=== PATIENT | male | born 1985 | race Caucasian/White ===

== ENCOUNTER 2020-10-25 19:41 | Inpatient (IN) | payer OTHER ==
[~2020-10-25] VITALS: Ht 175.3 cm; Wt 111.5 kg
[~2020-10-25 19:41] MED LIST: Amoxicillin500 MG PO; CHLO25 PO; CYCL10 PO; Cyclobenzaprine5 MG PO; HYDACE5 PO; IBUP400; NAPR500 PO; Naprosyn500 MG PO
[2020-10-25 20:18] LABS: BASOPHILS ABSOLUTE AUTO 0.07 K/mm3 (0.00-0.23); BASOPHILS PERCENT AUTO 0 % (0-2); EOSINOPHILS ABSOLUTE AUTO 0.03 K/mm3 (0.00-0.68); EOSINOPHILS PERCENT AUTO 0 % (0-6); Hematocrit 46.6 % (37.0-53.0); Hemoglobin 15.4 g/dL (13.5-17.5); IMMATURE GRAN ABSOLUTE AUTO 0.07 K/mm3 (0.00-0.10); IMMATURE GRAN PERCENT AUTO 0 % (0-1); LYMPHOCYTES ABSOLUTE AUTO 1.92 K/mm3 (0.84-5.20); LYMPHOCYTES PERCENT AUTO 10 % (21-46); MONOCYTES ABSOLUTE AUTO 1.84 K/mm3 (0.16-1.47); MONOCYTES PERCENT AUTO 10 % (4-13); Mean Corpuscular HGB 30.4 pg (26.0-34.0); Mean Corpuscular Volume 92 fL (80-100); Mean Platelet Volume 10.2 fL (9.1-12.4); NEUTROPHILS PERCENT AUTO 80 % (41-73); Platelet Count 258 K/mm3 (150-400); RDW Coefficient Variation 12.3 % (11.7-14.2); RDW Standard Deviation 41.8 fL (35.1-46.3); Red Blood Cell Count 5.07 M/mm3 (4.30-5.90); White Blood Cell Count 19.43 K/mm3 (4.00-11.30)
[2020-10-25 20:41] LABS: Alanine Aminotransfer (ALT/SGP 88 U/L (12-78); Albumin, Blood 4.4 g/dL (3.4-5.0); Albumin/Globulin Ratio 1.1 (0.8-1.8); Alk Phos 110 U/L (50-136); Anion Gap 8 mmol/L (6-16); Aspartate Aminotrans (AST/SGOT 27 U/L (12-37); Bilirubin, Total 0.7 mg/dL (0.1-1.0); Blood Urea Nitrogen 11 mg/dL (8-24); Bun/Creatinine Ratio 12.7 (12.0-20.0); CO2, Blood 24 mmol/L (21-32); Calcium, Blood 9.2 mg/dL (8.5-10.1); Chloride, Blood 108 mmol/L (98-108); Creatinine, Blood 0.86 mg/dL (0.60-1.20); Globulin, Blood 4.1 g/dL (2.2-4.0); Glomerular Filtration Rate >60 (60-); Glucose, Blood 83 mg/dL (70-99); Potassium, Blood 3.4 mmol/L (3.5-5.5); Sodium, Blood 140 mmol/L (136-145); Total Protein, Blood 8.5 g/dL (6.4-8.2)
[2020-10-26] MEDS ORDERED: Hair, Skin & N1 EACH PO (00:15)
[2020-10-26 00:33] LABS: Source, Urine Clean Catch
[2020-10-26 00:35] LABS: Bilirubin, Urine Neg (Neg); Blood, Urine 2+ (Neg); Glucose Qualitative, Urine Neg (Neg); Ketones, Urine 1+ (Neg); Leukocyte Esterase, Urine 1+ (Neg); Nitrite, Urine Pos (Neg); Protein, Urine Neg (Neg); Urobilinogen, Urine NORM (Normal)
[2020-10-26 00:37] LABS: Appearance, Urine Clear (Clear); Color, Urine Yellow (P-Yellow)
[2020-10-26 00:43] LABS: Bacteria Few /hpf; Red Blood Cells, Urine 0-2 /hpf (0-2); Squamous Epithelial Cells Not Seen /hpf (Few)
--- NOTE | 2020-10-26 00:45 | NUR ---
PT ARRIVED TO FLOOR FROM ER. PT A/O, HR TACHY 119, PT AFEBRILE. PT DENIES CP/PRESSURE/SOB, DOES C/O ABD PAIN W/DEEP BREATHS. PT C/O LOWER ABD PAIN X1 DAY W/NAUSEA. ABD DISTENDED, TENDER TO PALP. PT REP ABD PRESSURE/BLOATING, REP NO FLATUS. PT REP HAS BEEN UNABLE TO VOID, REP BLADDER PRESSURE/FULLNESS. PT VOIDED UPON ARRIVAL TO FLOOR, URINE ROSEY, PT REPORTS PAIN W/VOID. PT ORIENTED TO ROOM/CALL LIGHT, EDUCATED ON NPO STATUS. DR TALBOT UPDATED, VITALS REV. NEW ORDERS REC.
--- NOTE | 2020-10-26 06:33 | NUR ---
PT HR REMAINED TACHY 1'TEENS T/O NIGHT, PT DENIED CP/PRESSURE/SOB. PT AFEBRILE SINCE ARRIVING TO FLOOR. PT REPORTS LOWER ABD PAIN, REP WORSE THIS AM AFTER PASSING FLATUS. PT HAD NO N/V. PT CONT TO REPORT DYSURIA, URINE ROSEY. PT NPO, IVF AND ABX CONT PER ORDERS. PT UP INDEP IN ROOM, DENIED DIZZINESS WHEN UP.
[2020-10-26 06:52] LABS: Influenza A, PCR Negative (NEGATIVE); Influenza B, PCR Negative (NEGATIVE); Resp Syncytial Virus, PCR Negative (NEGATIVE); SARS-Cov-2 (COVID-19) PCR, MMC Negative (NEGATIVE)
--- NOTE | 2020-10-26 18:46 | NUR ---
SHIFT SUMMARY PAIN HAS BEEN MANAGED WITH IV PAIN MEDICATION. PT IS INDEPEDENT IN THE ROOM. VSS. WILL MONITOR UNTIL REPORT TO ONCOMING RN.
[2020-10-27 03:56] LABS: BASOPHILS ABSOLUTE AUTO 0.03 K/mm3 (0.00-0.23); BASOPHILS PERCENT AUTO 0 % (0-2); EOSINOPHILS ABSOLUTE AUTO 0.05 K/mm3 (0.00-0.68); EOSINOPHILS PERCENT AUTO 0 % (0-6); Hematocrit 38.2 % (37.0-53.0); Hemoglobin 12.4 g/dL (13.5-17.5); IMMATURE GRAN ABSOLUTE AUTO 0.05 K/mm3 (0.00-0.10); IMMATURE GRAN PERCENT AUTO 0 % (0-1); LYMPHOCYTES ABSOLUTE AUTO 1.76 K/mm3 (0.84-5.20); LYMPHOCYTES PERCENT AUTO 12 % (21-46); MONOCYTES ABSOLUTE AUTO 1.17 K/mm3 (0.16-1.47); MONOCYTES PERCENT AUTO 8 % (4-13); Mean Corpuscular HGB 30.1 pg (26.0-34.0); Mean Corpuscular HGB Conc 32.5 g/dL (31.5-36.5); Mean Corpuscular Volume 93 fL (80-100); Mean Platelet Volume 9.9 fL (9.1-12.4); NEUTROPHILS ABSOLUTE AUTO 11.44 K/mm3 (1.96-9.15); NEUTROPHILS PERCENT AUTO 79 % (41-73); Platelet Count 195 K/mm3 (150-400); RDW Coefficient Variation 12.1 % (11.7-14.2); RDW Standard Deviation 41.7 fL (35.1-46.3); Red Blood Cell Count 4.12 M/mm3 (4.30-5.90)
[2020-10-27 04:12] LABS: Anion Gap 9 mmol/L (6-16); Blood Urea Nitrogen 8 mg/dL (8-24); CO2, Blood 23 mmol/L (21-32); Calcium, Blood 8.2 mg/dL (8.5-10.1); Chloride, Blood 110 mmol/L (98-108); Creatinine, Blood 0.89 mg/dL (0.60-1.20); Glomerular Filtration Rate >60 (60-); Glucose, Blood 88 mg/dL (70-99); Potassium, Blood 3.5 mmol/L (3.5-5.5); Sodium, Blood 142 mmol/L (136-145)
--- NOTE | 2020-10-27 05:40 | NUR ---
PT HR REMAINS TACHY LOW 100'S, PT DENIES CP/PRESSURE/SOB; OTHER VSS. PT REP ABD PAIN MORE LOCALIZED TO MID-LOWER ABD. BT ACTIVE, PT REP +FLAUTS, REP INC PAIN W/PASSING GAS. PT CONT TO C/O PAIN W/VOID, REP CRAMPING FEELING FOR APPX 30 MIN AFTER VOIDING. PT MED FOR NAUSEA X1, NO EMESIS. PT UP INDEP IN ROOM, AMB ENC PT DUSTIN. IVF AND ABX CONT PER ORDERS.
[2020-10-28 05:20] LABS: BASOPHILS ABSOLUTE AUTO 0.03 K/mm3 (0.00-0.23); BASOPHILS PERCENT AUTO 0 % (0-2); EOSINOPHILS ABSOLUTE AUTO 0.23 K/mm3 (0.00-0.68); EOSINOPHILS PERCENT AUTO 2 % (0-6); Hematocrit 36.9 % (37.0-53.0); Hemoglobin 12.3 g/dL (13.5-17.5); IMMATURE GRAN ABSOLUTE AUTO 0.05 K/mm3 (0.00-0.10); IMMATURE GRAN PERCENT AUTO 1 % (0-1); LYMPHOCYTES ABSOLUTE AUTO 2.19 K/mm3 (0.84-5.20); LYMPHOCYTES PERCENT AUTO 22 % (21-46); MONOCYTES ABSOLUTE AUTO 0.85 K/mm3 (0.16-1.47); MONOCYTES PERCENT AUTO 9 % (4-13); Mean Corpuscular HGB 30.8 pg (26.0-34.0); Mean Corpuscular HGB Conc 33.3 g/dL (31.5-36.5); Mean Corpuscular Volume 93 fL (80-100); Mean Platelet Volume 10.1 fL (9.1-12.4); NEUTROPHILS ABSOLUTE AUTO 6.66 K/mm3 (1.96-9.15); NEUTROPHILS PERCENT AUTO 67 % (41-73); Platelet Count 215 K/mm3 (150-400); RDW Coefficient Variation 12.1 % (11.7-14.2); RDW Standard Deviation 41.4 fL (35.1-46.3); Red Blood Cell Count 3.99 M/mm3 (4.30-5.90); White Blood Cell Count 10.01 K/mm3 (4.00-11.30)
--- NOTE | 2020-10-28 07:32 | NUR ---
PT VSS T/O NIGHT. T-MAX 100.3, IMPROVED AFTER TORADOL GIVEN. PT DUSTIN CL PO, NO N/V, PT IS PASSING FLATUS, NO BM YET. ABD MOD DISTENDED, BT HYPER ACTIVE. PT CONT TO REP PAIN IN SUPERPBIC AREA, REP INC PAIN AFTER VOIDING URINE. URINE CLEAR YELLOW. PAIN MGD W/TORADOL AND 8MG MORPHINE. PT AMB INDEP IN HALLS, DUSTIN WELL. IVF AND ABX CONT PER ORDERS.
[2020-10-28] MEDS ORDERED: AMOCLA875 PO (15:12)
[2020-10-28] MEDS ORDERED: HYDR1TAB94 PO (15:13)
--- NOTE | 2020-10-28 15:31 | NUR ---
DISCHARGE PT DISCHARGED HOME FROM UNIT AT APROX 1520. PT GIVEN WRITTEN AND VERBAL DISCHARGE INSTRUCTIONS AND VERBALIZED UNDERSTANDING OF THESE INSTRUCTIONS. IV REMOVED. WRITTEN RX'S GIVEN TO PT FOR ABX AND PAIN MEDICATION, COPIES IN CHART. DECLINED WHEELCHAIR TO CAR.
[2021-01-29] MEDS ORDERED: NAPROXEN250 M1 PO (14:57)
[2021-01-29] MEDS ORDERED: MULTIPLE VITAM1 EACH PO (14:57)
[2021-03-05] MEDS ORDERED: MULVITA PO (14:03)
[2021-03-05] MEDS ORDERED: NAPR220 PO (14:05)
== END 2020-10-28 15:28 | disposition home or self-care (01) | DRG 872 ==
LOC: ER 19:41 → SURS 19:42
PROVIDERS: Emergency Medicine; ADMIT Surgery
DX: A41.9 Sepsis, unspecified organism (principal); K57.20 Diverticulitis of large intestine with perforation and abscess without bleeding; Z20.822 Contact with and (suspected) exposure to COVID-19; I10 Essential (primary) hypertension; Z79.899 Other long term (current) drug therapy; Z79.1 Long term (current) use of non-steroidal anti-inflammatories (NSAID); Z87.891 Personal history of nicotine dependence
CPT/HCPCS: 0241U; 36415; 51798; 74176; 80048; 80053; 81001; 83605; 83690; 85025; 87040; 87086; 96361; 96365; 96366; 96375; 96376; 99285-25; A9270; G0378; J0696; J1170; J1650; J1885; J2270; J2405; J2543; J3010; J7030; J7120

== ENCOUNTER 2020-12-07 13:20 | Inpatient (IN) | payer OTHER ==
[~2020-12-07] VITALS: Ht 175.3 cm; Wt 108.9 kg
[~2020-12-07 13:20] MED LIST changes: +AMOCLA875 PO; +HYDR1TAB94 PO; +Hair, Skin & N1 EACH PO
[2020-12-07 13:57] LABS: BASOPHILS ABSOLUTE AUTO 0.04 K/mm3 (0.00-0.23); BASOPHILS PERCENT AUTO 0 % (0-2); EOSINOPHILS ABSOLUTE AUTO 0.04 K/mm3 (0.00-0.68); EOSINOPHILS PERCENT AUTO 0 % (0-6); Hematocrit 47.2 % (37.0-53.0); Hemoglobin 16.4 g/dL (13.5-17.5); IMMATURE GRAN ABSOLUTE AUTO 0.08 K/mm3 (0.00-0.10); IMMATURE GRAN PERCENT AUTO 0 % (0-1); LYMPHOCYTES ABSOLUTE AUTO 1.74 K/mm3 (0.84-5.20); LYMPHOCYTES PERCENT AUTO 9 % (21-46); MONOCYTES ABSOLUTE AUTO 0.93 K/mm3 (0.16-1.47); MONOCYTES PERCENT AUTO 5 % (4-13); Mean Corpuscular HGB 30.6 pg (26.0-34.0); Mean Corpuscular HGB Conc 34.7 g/dL (31.5-36.5); Mean Corpuscular Volume 88 fL (80-100); NEUTROPHILS ABSOLUTE AUTO 16.95 K/mm3 (1.96-9.15); NEUTROPHILS PERCENT AUTO 86 % (41-73); Platelet Count 312 K/mm3 (150-400); RDW Coefficient Variation 12.5 % (11.7-14.2); RDW Standard Deviation 40.2 fL (35.1-46.3); Red Blood Cell Count 5.36 M/mm3 (4.30-5.90); White Blood Cell Count 19.78 K/mm3 (4.00-11.30)
[2020-12-07 14:18] LABS: Alanine Aminotransfer (ALT/SGP 81 U/L (12-78); Albumin, Blood 4.4 g/dL (3.4-5.0); Albumin/Globulin Ratio 1.1 (0.8-1.8); Alk Phos 116 U/L (50-136); Anion Gap 11 mmol/L (6-16); Aspartate Aminotrans (AST/SGOT 24 U/L (12-37); Bilirubin, Total 0.6 mg/dL (0.1-1.0); Blood Urea Nitrogen 10 mg/dL (8-24); Bun/Creatinine Ratio 12.8 (12.0-20.0); CO2, Blood 22 mmol/L (21-32); Calcium, Blood 9.2 mg/dL (8.5-10.1); Chloride, Blood 107 mmol/L (98-108); Creatinine, Blood 0.78 mg/dL (0.60-1.20); Glomerular Filtration Rate >60 (60-); Glucose, Blood 92 mg/dL (70-99); Potassium, Blood 3.8 mmol/L (3.5-5.5); Sodium, Blood 140 mmol/L (136-145); Total Protein, Blood 8.4 g/dL (6.4-8.2)
[2020-12-07 16:35] LABS: Source, Urine Catheter
[2020-12-07 16:44] LABS: Appearance, Urine Clear (Clear); Bilirubin, Urine Neg (Neg); Blood, Urine 3+ (Neg); Color, Urine Yellow (P-Yellow); Glucose Qualitative, Urine Neg (Neg); Ketones, Urine Neg (Neg); Leukocyte Esterase, Urine Neg (Neg); Nitrite, Urine Neg (Neg); Protein, Urine Neg (Neg); Specific Gravity, Urine 1.005 (1.003-1.022); Urobilinogen, Urine NORM (Normal)
[2020-12-07 16:57] LABS: Bacteria Not Seen /hpf; Squamous Epithelial Cells Not Seen /hpf (Few); White Blood Cells, Urine Not Seen /hpf (0-5)
[2020-12-07 17:15] LABS: Influenza A, PCR NEGATIVE (NEGATIVE); Influenza B, PCR NEGATIVE (NEGATIVE); Resp Syncytial Virus, PCR NEGATIVE (NEGATIVE); SARS-Cov-2 (COVID-19) PCR, MMC NEGATIVE (NEGATIVE)
--- NOTE | 2020-12-08 04:08 | NUR ---
SHIFT SUMMARY S/P SIGMOID DIVERTICULITIS PERF, A/O X4, VSS W/ INTERMITTENT TACHYCARDIA, NPO SINCE ADMISSION, INDEPENDENT IN ROOM, VOIDING WELL, PAIN WELL CONTROLLED PER EMAR. CALLLIGHT IN REACH, WILL CONTINUE TO MONITOR AND REPORT TO ONCOMING DAY RN.
[2020-12-08 04:49] LABS: BASOPHILS ABSOLUTE AUTO 0.04 K/mm3 (0.00-0.23); BASOPHILS PERCENT AUTO 0 % (0-2); EOSINOPHILS ABSOLUTE AUTO 0.07 K/mm3 (0.00-0.68); EOSINOPHILS PERCENT AUTO 1 % (0-6); Hematocrit 41.6 % (37.0-53.0); Hemoglobin 14.2 g/dL (13.5-17.5); IMMATURE GRAN ABSOLUTE AUTO 0.04 K/mm3 (0.00-0.10); IMMATURE GRAN PERCENT AUTO 0 % (0-1); LYMPHOCYTES ABSOLUTE AUTO 2.03 K/mm3 (0.84-5.20); LYMPHOCYTES PERCENT AUTO 16 % (21-46); MONOCYTES PERCENT AUTO 8 % (4-13); Mean Corpuscular HGB 30.8 pg (26.0-34.0); Mean Corpuscular HGB Conc 34.1 g/dL (31.5-36.5); Mean Corpuscular Volume 90 fL (80-100); Mean Platelet Volume 9.9 fL (9.1-12.4); NEUTROPHILS ABSOLUTE AUTO 9.37 K/mm3 (1.96-9.15); NEUTROPHILS PERCENT AUTO 75 % (41-73); Platelet Count 251 K/mm3 (150-400); RDW Coefficient Variation 12.7 % (11.7-14.2); RDW Standard Deviation 41.5 fL (35.1-46.3); Red Blood Cell Count 4.61 M/mm3 (4.30-5.90); White Blood Cell Count 12.55 K/mm3 (4.00-11.30)
[2020-12-08 05:06] LABS: Alanine Aminotransfer (ALT/SGP 54 U/L (12-78); Albumin, Blood 3.3 g/dL (3.4-5.0); Albumin/Globulin Ratio 0.9 (0.8-1.8); Alk Phos 90 U/L (50-136); Anion Gap 7 mmol/L (6-16); Aspartate Aminotrans (AST/SGOT 10 U/L (12-37); Bilirubin, Total 1.3 mg/dL (0.1-1.0); Blood Urea Nitrogen 9 mg/dL (8-24); Bun/Creatinine Ratio 8.9 (12.0-20.0); CO2, Blood 25 mmol/L (21-32); Calcium, Blood 8.3 mg/dL (8.5-10.1); Chloride, Blood 109 mmol/L (98-108); Creatinine, Blood 1.01 mg/dL (0.60-1.20); Globulin, Blood 3.6 g/dL (2.2-4.0); Glomerular Filtration Rate >60 (60-); Glucose, Blood 96 mg/dL (70-99); Potassium, Blood 3.5 mmol/L (3.5-5.5); Sodium, Blood 141 mmol/L (136-145); Total Protein, Blood 6.9 g/dL (6.4-8.2)
--- NOTE | 2020-12-08 17:13 | NUR ---
SUMMARY PT W/ ABD PAIN, CRAMPING AND NAUSEA THIS AM, REPORTS PAIN IS TOLERABLE WITH DILAUDID AND TORADOL, ZOFRAN GIVEN FOR NAUSEA, AMBULATED DOWN THE HALLS, STARTED CLEAR LIQUIDS TODAY, REPORTS NAUSEA AND ABD PAIN SLIGHTLY BETTER AFTER TAKING CLEAR LIQUIDS REPORTS TOLERATED WELL, STILL TACHY UP TO 121, DR. BLACKMAN AWARE, CURRENTLY 112BPM, HASN NOT NEEDED PRN HYDRALAZINE TODAY, DENIES PASSING FLATUS, DR. CARLSON AWARE OF CONSULT STATES DR. TALBOT WILL SEE PT TOMORROW.
[2020-12-09 04:32] LABS: Hematocrit 39.9 % (37.0-53.0); Hemoglobin 13.4 g/dL (13.5-17.5); Mean Corpuscular HGB 30.4 pg (26.0-34.0); Mean Corpuscular HGB Conc 33.6 g/dL (31.5-36.5); Mean Corpuscular Volume 91 fL (80-100); Mean Platelet Volume 9.7 fL (9.1-12.4); Platelet Count 264 K/mm3 (150-400); RDW Coefficient Variation 12.4 % (11.7-14.2); Red Blood Cell Count 4.41 M/mm3 (4.30-5.90); White Blood Cell Count 10.83 K/mm3 (4.00-11.30)
[2020-12-09 05:01] LABS: Alanine Aminotransfer (ALT/SGP 44 U/L (12-78); Albumin, Blood 3.1 g/dL (3.4-5.0); Albumin/Globulin Ratio 0.8 (0.8-1.8); Alk Phos 90 U/L (50-136); Anion Gap 6 mmol/L (6-16); Aspartate Aminotrans (AST/SGOT 12 U/L (12-37); Bilirubin, Total 0.8 mg/dL (0.1-1.0); Blood Urea Nitrogen 8 mg/dL (8-24); Bun/Creatinine Ratio 8.2 (12.0-20.0); CO2, Blood 26 mmol/L (21-32); Calcium, Blood 8.8 mg/dL (8.5-10.1); Chloride, Blood 108 mmol/L (98-108); Creatinine, Blood 0.97 mg/dL (0.60-1.20); Globulin, Blood 3.8 g/dL (2.2-4.0); Glomerular Filtration Rate >60 (60-); Glucose, Blood 88 mg/dL (70-99); Magnesium, Blood 2.3 mg/dL (1.6-2.4); Phosphorus, Blood 3.2 mg/dL (2.5-4.9); Potassium, Blood 3.8 mmol/L (3.5-5.5); Sodium, Blood 140 mmol/L (136-145); Total Protein, Blood 6.9 g/dL (6.4-8.2)
--- NOTE | 2020-12-09 07:42 | NUR ---
PT VSS T/O NIGHT, HR SINUS TACH 90-1'TEENS, PT DENIED CP/PRESSURE. PT DUSTIN CL PO, REP MILD NAUSEA THIS AM, ZOFRAN GIVEN X1 W/REP RELIEF. PT REP PASSING SMALL AMT FLATUS. PT REP PAIN BETTER MGD W/2MG IV DILAUDID. IVF CONT PER ORDERS.
--- NOTE | 2020-12-09 09:33 | NUR ---
ISTRATE HERE TO SEE PT. DISCUSSED PT'S STATUS, MEDS GIVEN.
--- NOTE | 2020-12-09 11:28 | NUR ---
PT REQ TO HAVE SHOWER. DISCUSSED TAKING OFF TELE FOR SHOWER WITH . REPORTS MAY D/C TELE. PT HAS HAD NO CP/SOB. NO EVENTS PER TELE. WILL D/C TELE.
--- NOTE | 2020-12-09 16:52 | NUR ---
SHIFT SUMMARY PT BEEN MED PRN FOR NAUSEA EARLIER TODAY. DENIES NAUSEA SO FAR THIS AFTERNOON. PT TOLERATED DIET. PT TOOK SHOWER TODAY. DR BEEN TO SEE PT. PT WALKING IN ROOM AND IN HALLWAY TODAY. PT BEEN ASSISTED WITH ADL'S PRN.
--- NOTE | 2020-12-09 19:11 | NUR ---
BEDSIDE REPORT RECENTLY COMPLETED WITH HS RN.
--- NOTE | 2020-12-10 03:50 | NUR ---
PANEL CUTTER SUMMARY A/OX4, IND IN ROOM. C/O LOWER ABD PAIN, MEDICATED PER EMAR X2. IV ZOSYN GIVEN. NO ACUTE CHANGES AT THIS TIME. BED IN LOWEST POSITION WITH CALL LIGHT IN REACH. WILL CONTINUE TO MONITOR AND REPORT TO ONCOMING RN.
[2020-12-10 04:29] LABS: BASOPHILS ABSOLUTE AUTO 0.03 K/mm3 (0.00-0.23); BASOPHILS PERCENT AUTO 0 % (0-2); EOSINOPHILS ABSOLUTE AUTO 0.38 K/mm3 (0.00-0.68); EOSINOPHILS PERCENT AUTO 5 % (0-6); Hematocrit 35.2 % (37.0-53.0); Hemoglobin 11.9 g/dL (13.5-17.5); IMMATURE GRAN ABSOLUTE AUTO 0.03 K/mm3 (0.00-0.10); IMMATURE GRAN PERCENT AUTO 0 % (0-1); LYMPHOCYTES ABSOLUTE AUTO 2.07 K/mm3 (0.84-5.20); LYMPHOCYTES PERCENT AUTO 29 % (21-46); MONOCYTES PERCENT AUTO 10 % (4-13); Mean Corpuscular HGB 30.7 pg (26.0-34.0); Mean Corpuscular HGB Conc 33.8 g/dL (31.5-36.5); Mean Corpuscular Volume 91 fL (80-100); Mean Platelet Volume 9.8 fL (9.1-12.4); NEUTROPHILS ABSOLUTE AUTO 3.98 K/mm3 (1.96-9.15); NEUTROPHILS PERCENT AUTO 55 % (41-73); Platelet Count 262 K/mm3 (150-400); RDW Coefficient Variation 12.4 % (11.7-14.2); RDW Standard Deviation 40.9 fL (35.1-46.3); Red Blood Cell Count 3.88 M/mm3 (4.30-5.90); White Blood Cell Count 7.19 K/mm3 (4.00-11.30)
[2020-12-10 04:47] LABS: Alanine Aminotransfer (ALT/SGP 36 U/L (12-78); Albumin, Blood 2.9 g/dL (3.4-5.0); Albumin/Globulin Ratio 0.9 (0.8-1.8); Alk Phos 84 U/L (50-136); Anion Gap 6 mmol/L (6-16); Aspartate Aminotrans (AST/SGOT 10 U/L (12-37); Bilirubin, Total 0.4 mg/dL (0.1-1.0); Blood Urea Nitrogen 7 mg/dL (8-24); Bun/Creatinine Ratio 7.3 (12.0-20.0); CO2, Blood 26 mmol/L (21-32); Calcium, Blood 8.2 mg/dL (8.5-10.1); Chloride, Blood 109 mmol/L (98-108); Creatinine, Blood 0.97 mg/dL (0.60-1.20); Globulin, Blood 3.4 g/dL (2.2-4.0); Glomerular Filtration Rate >60 (60-); Glucose, Blood 90 mg/dL (70-99); Magnesium, Blood 2.3 mg/dL (1.6-2.4); Phosphorus, Blood 3.6 mg/dL (2.5-4.9); Potassium, Blood 3.6 mmol/L (3.5-5.5); Sodium, Blood 141 mmol/L (136-145); Total Protein, Blood 6.3 g/dL (6.4-8.2)
--- NOTE | 2020-12-10 14:36 | NUR ---
DR TALBOT RECENTLY TO SEE PT, REPORTED PT MAY D/C HOME TODAY. DISCUSSED WITH DR BLACKMAN. PAIN PILLS ORDERED. PT REPORTS WILL FIND RIDE HOME.
[2020-12-10] MEDS ORDERED: ACET325 PO (15:16)
[2020-12-10] MEDS ORDERED: HYDR10 PO (15:18)
[2020-12-10] MEDS ORDERED: ONDA4ODT PO (15:18)
[2020-12-10] MEDS ORDERED: AMOCLA500 PO (15:19)
[2020-12-10] MEDS ORDERED: Percocet 5-3251 EACH PO (15:20)
[2020-12-10] MEDS ORDERED: METR500 PO (15:21)
[2020-12-10] MEDS ORDERED: CIPR500 PO (15:22)
[2020-12-10] MEDS ORDERED: VISBIOME 112.51 EACH PO (15:49)
--- NOTE | 2020-12-10 16:06 | NUR ---
DISCHARGE: PT REPORTS TOLERATING DIET AND LIQUIDS. REPORTS PAIN CONTROLLED ON PO PAIN MEDICATION. PT REPORTS UNDERSTANDING OF DISCHARGE INSTRUCTIONS. PT TO BE SENT WITH BELONGINGS. PT HAS PAPERWORK INCLUDING SCRIPTS. [employer] CALLED TO [facility] PER PT REQ. PT REPORTS NOT WANTING TYLENOL OR HYDRALAZINE CALLED IN. PT REFUSES HYDRALAZINE AND REPORTS HAVING TYLENOL AT HOME. PT WAITING FOR RIDE HOME.
--- NOTE | 2020-12-10 16:25 | NUR ---
PT OUT BY W/C WITH BELONGINGS AND PAPERWORK.
[2021-01-29] MEDS ORDERED: NAPROXEN250 M1 PO (14:57)
[2021-01-29] MEDS ORDERED: MULTIPLE VITAM1 EACH PO (14:57)
[2021-03-05] MEDS ORDERED: MULVITA PO (14:03)
[2021-03-05] MEDS ORDERED: NAPR220 PO (14:05)
== END 2020-12-10 16:30 | disposition home or self-care (01) | DRG 872 ==
LOC: ER 13:20 → SURS 17:24 → ERHOLD 17:24 → SURS 18:56
PROVIDERS: Emergency Medicine; Family Medicine; Physician Assistant; ADMIT Internal Medicine
DX: A41.9 Sepsis, unspecified organism (principal); K57.20 Diverticulitis of large intestine with perforation and abscess without bleeding; I10 Essential (primary) hypertension; Z20.822 Contact with and (suspected) exposure to COVID-19; Z87.891 Personal history of nicotine dependence
CPT/HCPCS: 0241U; 36415; 74177; 80053; 81001; 83605; 83735; 84100; 85025; 85027; 87040; 87086; 93005; 93010; 96361; 96365-59; 96375; 99285-25; A9270; J1170; J1650; J1885; J2405; J2543; J3010; J7030; J7120; Q9967

== ENCOUNTER 2021-02-04 11:36 | Day surgery (SDC) | payer OTHER ==
[~2021-02-04] VITALS: Ht 175.3 cm; Wt 108.2 kg
[~2021-02-04 11:36] MED LIST changes: +ACET325 PO; +AMOCLA500 PO; +CIPR500 PO; +HYDR10 PO; +METR500 PO; +MULTIPLE VITAM1 EACH PO; +NAPROXEN250 M1 PO; +ONDA4ODT PO; +Percocet 5-3251 EACH PO; +VISBIOME 112.51 EACH PO
--- NOTE | 2021-02-04 12:25 | NUR ---
02/04/21 1225 Ashanti Holman CALL LIGHT WITHIN REACH
== END 2021-02-04 13:51 | disposition home or self-care (01) ==
LOC: ORSCSDS 11:36
PROVIDERS: Surgery
PROC: 0DJD8ZZ Inspection of Lower Intestinal Tract, Via Natural or Artificial Opening Endoscopic (ICD-10-PCS; principal; 2021-02-04 13:00)
DX: K57.30 Diverticulosis of large intestine without perforation or abscess without bleeding (principal); Z87.19 Personal history of other diseases of the digestive system; I10 Essential (primary) hypertension; E66.9 Obesity, unspecified; Z68.36 Body mass index [BMI] 36.0-36.9, adult; Z87.891 Personal history of nicotine dependence; Z79.899 Other long term (current) drug therapy
CPT/HCPCS: J2250; J2704; J7120

== ENCOUNTER 2021-03-19 05:55 | Inpatient (IN) | payer OTHER ==
[~2021-03-19] VITALS: Ht 175.3 cm; Wt 110.5 kg
[~2021-03-19 05:55] MED LIST changes: +MULVITA PO; +NAPR220 PO
--- NOTE | 2021-03-19 06:29 | NUR ---
INTO [facility] ADMISSION STARTED. Ambulatory in Day Surgery. History, Chart, Medications and Allergies reviewed before start of procedure. Lungs clear T/O to Auscultation. Patient confirms NPO status and agrees with scheduled surgery. Patient reports completing Chlorhexadine shower X2 prior to admission to hospital.
--- NOTE | 2021-03-19 18:26 | NUR ---
SHIFT SUMMARY S/P LAP COLECTOMY, X4 LAP SITES W/ GAUZE AND TAPE COVERINGS. PT HAS DONE WELL POST OP. ABD HAS BEEN TENDER AND REPORTS PAIN TO BE ABOUT 5/10 BUT "MANAGABLE". MARION IN PLACE, DRAINING DARK YELLOW URINE. PT DID NOT WANT TO GET OUT OF BED THIS AFTERNOON BUT IS AGREEABLE TO DO SO IN THE MORNING. CALL LIGHT IN REACH.
[2021-03-20 04:06] LABS: BASOPHILS ABSOLUTE AUTO 0.02 K/mm3 (0.00-0.23); BASOPHILS PERCENT AUTO 0 % (0-2); EOSINOPHILS ABSOLUTE AUTO 0.01 K/mm3 (0.00-0.68); EOSINOPHILS PERCENT AUTO 0 % (0-6); Hematocrit 43.1 % (37.0-53.0); Hemoglobin 14.6 g/dL (13.5-17.5); IMMATURE GRAN ABSOLUTE AUTO 0.07 K/mm3 (0.00-0.10); IMMATURE GRAN PERCENT AUTO 1 % (0-1); LYMPHOCYTES PERCENT AUTO 15 % (21-46); MONOCYTES ABSOLUTE AUTO 0.96 K/mm3 (0.16-1.47); MONOCYTES PERCENT AUTO 7 % (4-13); Mean Corpuscular HGB 30.4 pg (26.0-34.0); Mean Corpuscular HGB Conc 33.9 g/dL (31.5-36.5); Mean Corpuscular Volume 90 fL (80-100); Mean Platelet Volume 9.8 fL (9.1-12.4); NEUTROPHILS ABSOLUTE AUTO 10.98 K/mm3 (1.96-9.15); NEUTROPHILS PERCENT AUTO 77 % (41-73); Platelet Count 272 K/mm3 (150-400); RDW Coefficient Variation 12.3 % (11.7-14.2); RDW Standard Deviation 40.6 fL (35.1-46.3); Red Blood Cell Count 4.81 M/mm3 (4.30-5.90); White Blood Cell Count 14.24 K/mm3 (4.00-11.30)
[2021-03-20 04:26] LABS: Anion Gap 5 mmol/L (6-16); Blood Urea Nitrogen 10 mg/dL (8-24); Bun/Creatinine Ratio 12.8 (12.0-20.0); CO2, Blood 26 mmol/L (21-32); Calcium, Blood 8.4 mg/dL (8.5-10.1); Chloride, Blood 106 mmol/L (98-108); Creatinine, Blood 0.78 mg/dL (0.60-1.20); Glomerular Filtration Rate >60 (60-); Glucose, Blood 105 mg/dL (70-99); Sodium, Blood 137 mmol/L (136-145)
--- NOTE | 2021-03-20 05:06 | NUR ---
SHIFT SUMMARY POD1 LAP RAFAEL, A/O X4, VSS, TOLERATING SIPS/CHIPS, VOIDING VIA MARION, PAIN MANAGED W/ DILAUDID AS400 ANALYST AND TYLENOL, PT REPORTED SOME NAUSEA ONE TIME TONIGHT WHICH IMPROVED W/ ZOFRAN, NO ACUTE EVENTS THIS SHIFT. CALL LIGHT IN REACH, WILL CTM AND REPORT TO ONCOMING DAY RN.
--- NOTE | 2021-03-20 07:31 | NUR ---
DR TALBOT IN TO SEE PT.
--- NOTE | 2021-03-20 12:48 | NUR ---
MEDICATED PT PER ORDERS FOR NAUSEA STATED SMELL OF CHICKEN BROTH CAUSED NAUSEA. REQUESTING BEEF BROTH FOR DINNER.
--- NOTE | 2021-03-20 16:11 | NUR ---
NO ACUTE CHANGES T/O SHIFT. MEDICATED PT ONCE AFTER LUNCH FOR NAUSEA. TOLERATING SIPS OF CLEARS. VOIDING WELL. PAIN CONTROLLED PER INSTITUTIONAL NUTRITION CONSULTANT ORDERS. SITTING UP ON EDGE OF BED. CALL LIGHT IN REACH.
--- NOTE | 2021-03-20 16:47 | NUR ---
REPORT GIVEN TO JERICA Padgett RN.
--- NOTE | 2021-03-20 17:30 | NUR ---
assumed care of pt following receiving report from previous RN. pt resting in bed watching TV, call light within reach, bed rails up x 2, bed in lowest position.
--- NOTE | 2021-03-21 04:42 | NUR ---
SHIFT SUMMARY POD2 LAP SIG COLECTOMY, A/O X4, VSS, TOLERATING DIET, DENIES NAUSEA, AMBULATING, VOIDING WELL AFTER MARION DC'D, INDEPENDENT IN ROOM, PAIN WELL MANAGED PER EMAR, DILAUDID RADAR SCIENTIST IN PLACE. NO ACUTE EVENTS THIS SHIFT. CALL LIGHT IN REACH, WILL CONTINUE TO MONITOR AND REPORT TO ONCOMING DAY RN.
--- NOTE | 2021-03-21 07:40 | NUR ---
DR TALBOT BY TO SEE PT REMOVED ALL TEGADERM DRESSINGS TO ABD STATED HE CAN ADV HIS DIET TO FULL THIS AM AND START ON PO PAIN MEDS AND D/C THE PURCHASING INTERN PT STATED NO FLATUS THIS AM YESTERDAY SHAUNNA X2
--- NOTE | 2021-03-21 11:58 | NUR ---
PT HAVING INC PAIN DILAUDID 0.5 MG IVP GIVEN PT STATED HE IS PASSING GAS HAVING SOME ABD CRAMPS
--- NOTE | 2021-03-21 14:53 | NUR ---
pt req pain meds stated he is still passing gas and getting more bloating has very active belly still no bm no n/v at this time
--- NOTE | 2021-03-21 17:24 | NUR ---
2 tab po oxy given encouraged pt to only take sips of cls pt stated he is going to go and sit in the bathroom again
--- NOTE | 2021-03-22 04:08 | NUR ---
SHIFT SUMMARY: MARY IS A&OX4. VSS, NO ACUTE EVENTS OVERNIGHT. HE REPORTS POOR PAIN MANAGEMENT WHICH HE ATTRIBUTES TO INCREASED ABDOMINAL PAIN AND CRAMPING. HE STATES THAT HE CAN FEEL THINGS "MOVING DOWN" AND HAS CONTINUED PASSING FLATUS THIS SHIFT. HE HAS BEEN CAUTIOUS WITH HIS PO INTAKE. HE DID HAVE ONE EPISODE OF NAUSEA, BUT NO EMESIS. HE REPORTS ZOFRAN EFFECTIVE. HE IS INDEPENDENT IN THE ROOM AND HAS WALKED THE HALLWAYS TO ENCOURAGE HIS BOWELS TO MOVE. HE DENIES ANY DIFFICULTY URINATING. HE IS LYING IN BED WITH THE CALL LIGHT IN REACH. WILL REPORT TO DAY SHIFT RN.
--- NOTE | 2021-03-22 12:10 | NUR ---
PT REPORTS HAVING BOWEL MOVEMENT. REPORTS FEELING "A MILLION TIMES BETTER". PAIN RATED 4/10 CURRENTLY AMBULATING IN THE HALLS.
--- NOTE | 2021-03-22 17:44 | NUR ---
SHIFT SUMMARY POD3 ROBO COLECTOMY AA0X4, PT AMBULATING WELL IN THE HALLWAYS WITH NO WEAKNESS. REPORTS INCREASE IN PASSING OF FLATUS AND HAS REPORTED MULTIPLE BM'S TODAY. ONE LARGE SIZE THE REST SMALL. SIGNIFICANT DECREASE IN PAIN ONCE HE HAD BOWEL MOVEMENT. CLEAR LIQUIDS TODAY, ADVANCE TOMORROW. DENIES NAUSEA SINCE THIS AM. NAUSEA RELATED TO PAIN.
--- NOTE | 2021-03-23 04:38 | NUR ---
SHIFT SUMMARY: MARY IS A&OX4. VSS, NO ACUTE EVENTS OVERNIGHT. HE REPORTS ADEQUATE PAIN CONTROL WITH THE OXYCODONE AND DILAUDID. HE IS URINATING WITHOUT DIFFICULTY AND STATES THAT HE CONTINUES TO PASS GAS, BUT HAS NOT HAD ANOTHER BOWEL MOVEMENT. HE IS TOLERATING THE CLEAR DIET WELL. HE DID HAVE AN EPISODE OF NAUSEA WHICH HE ATTRIBUTED TO THE TYLENOL, STATING THAT IF HE TAKES IT ON AN EMPTY STOMACH IT CAUSES NAUSEA. HE IS INDEPENDENT IN THE ROOM. DRESSINGS C/D&I. HE IS LYING IN BED WITH THE CALL LIGHT IN REACH. WILL REPORT TO DAY SHIFT RN.
[2021-03-23] MEDS ORDERED: Percocet 5-3251 EACH PO (09:34)
[2021-03-23] MEDS ORDERED: ONDA4 PO (09:34)
--- NOTE | 2021-03-23 09:48 | NUR ---
CALLED PRESCRIPTION FOR ZOFRAN INTO [facility].
--- NOTE | 2021-03-23 13:12 | NUR ---
DISCHARGE. PT LEFT AT 1300 VIA WHEELCHAIR. PICKED HIM UP. PRESCRIPTIONS SENT PRIOR TO DISCHARGE WITH PATIENTS FATHER PER HIS REQUEST. PT CONTINUES TO PASS FLATUS AND HAVE ANOTHER BM. PAIN MANAGED PER EMAR WITH PO ROXICODONE AND TYLENOL. DENIED NEEDING DILAUDID DURING SHIFT. INSTRUCTIONS GONE OVER WITH PATIENT, HE DECLINES FURTHER QUESTIONS. IV REMOVED PRIOR TO DISCHARGE, PT DENIES ANY NAUSEA WITH FULL LIQUID DIET.
== END 2021-03-23 13:13 | disposition home or self-care (01) | DRG 331 ==
LOC: SURS 05:55 → PRE IP 07:30 → SURS 12:43
PROVIDERS: ADMIT Surgery
PROC: 0DBN4ZZ Excision of Sigmoid Colon, Percutaneous Endoscopic Approach (ICD-10-PCS; principal; 2021-03-19 07:30)
DX: K57.20 Diverticulitis of large intestine with perforation and abscess without bleeding (principal); I10 Essential (primary) hypertension; Z90.49 Acquired absence of other specified parts of digestive tract; Z98.890 Other specified postprocedural states; Z79.2 Long term (current) use of antibiotics; Z79.899 Other long term (current) drug therapy; Z87.891 Personal history of nicotine dependence
CPT/HCPCS: 36415; 80048; 85025; 88307; A9270; J0690; J1100; J1170; J1650; J1885; J2250; J2405; J2704; J3010; J7120

== ENCOUNTER 2023-11-07 20:58 | Emergency (ER) | payer OTHER ==
[~2023-11-07] VITALS: Ht 175.3 cm; Wt 104.3 kg
[~2023-11-07 20:58] MED LIST changes: +ONDA4 PO
[2023-11-07 21:58] LABS: BASOPHILS ABSOLUTE AUTO 0.04 K/mm3 (0.00-0.23); BASOPHILS PERCENT AUTO 1 % (0-2); EOSINOPHILS ABSOLUTE AUTO 0.18 K/mm3 (0.00-0.68); EOSINOPHILS PERCENT AUTO 2 % (0-6); Hematocrit 45.4 % (37.0-53.0); IMMATURE GRAN ABSOLUTE AUTO 0.02 K/mm3 (0.00-0.10); IMMATURE GRAN PERCENT AUTO 0 % (0-1); LYMPHOCYTES ABSOLUTE AUTO 3.09 K/mm3 (0.84-5.20); LYMPHOCYTES PERCENT AUTO 41 % (21-46); MONOCYTES ABSOLUTE AUTO 0.56 K/mm3 (0.16-1.47); MONOCYTES PERCENT AUTO 8 % (4-13); Mean Corpuscular HGB 31.1 pg (26.0-34.0); Mean Corpuscular HGB Conc 35.2 g/dL (31.5-36.5); Mean Corpuscular Volume 88 fL (80-100); Mean Platelet Volume 9.7 fL (9.1-12.4); NEUTROPHILS ABSOLUTE AUTO 3.62 K/mm3 (1.96-9.15); NEUTROPHILS PERCENT AUTO 48 % (41-73); Platelet Count 277 K/mm3 (150-400); RDW Coefficient Variation 11.9 % (11.7-14.2); Red Blood Cell Count 5.14 M/mm3 (4.30-5.90); White Blood Cell Count 7.51 K/mm3 (4.00-11.30)
[2023-11-07 22:16] LABS: Albumin, Blood 4.1 g/dL (3.4-5.0); Albumin/Globulin Ratio 1.1 (0.8-1.8); Bilirubin, Total 0.2 mg/dL (0.1-1.0); Bun/Creatinine Ratio 15.8 (12.0-20.0); Calcium, Blood 8.9 mg/dL (8.5-10.1); Creatinine, Blood 0.95 mg/dL (0.60-1.20); Globulin, Blood 3.7 g/dL (2.2-4.0); Potassium, Blood 3.5 mmol/L (3.5-5.5); Total Protein, Blood 7.8 g/dL (6.4-8.2)
[2023-11-08 00:30] VITALS: BP 124/84
== END 2023-11-08 00:48 | disposition home or self-care (01) ==
LOC: ER 20:58
PROVIDERS: Emergency Medicine
DX: K52.9 Noninfective gastroenteritis and colitis, unspecified (principal); K62.5 Hemorrhage of anus and rectum; I10 Essential (primary) hypertension; Z87.19 Personal history of other diseases of the digestive system; Z87.891 Personal history of nicotine dependence; Z79.899 Other long term (current) drug therapy
CPT/HCPCS: 74177; 80053; 83690; 85025; 96374; 96375; 99284-25; J1885; J3010; J7030; Q9967